=== PATIENT | male | born 1965 | race Caucasian/White ===

== ENCOUNTER → 2021-01-22 11:35 | Outpatient (CLI) | payer BC, SELFPAY ==
[2021-01-22 12:56] LABS: COVID19 -Nasal RAPID Negative (Negative)
== END ==
PROVIDERS: PCP Nurse Practitioner Family; Visit Provider Nurse Practitioner
DX: Z20.822 Contact with and (suspected) exposure to COVID-19 (principal)
CPT/HCPCS: 87635

== ENCOUNTER 2021-01-24 09:20 | Day surgery (SDC) | payer BC, SELFPAY ==
[2021-01-24] VITALS (11 sets, daily range): BP systolic 103–137; BP diastolic 39–93; PULSE 63–82; RESP 12–28; TEMP 36.1–36.2; O2SAT 86–97; BMI 43.1
--- NOTE | 2021-01-24 09:56 | PM.PREOP ---
Pre-operative Note COVID-19 COVID-19 status: Negative Result date/Date tested (Pos, Neg/Pending): 01/22/21 Interval Note History & Physical reviewed/Exam performed by Physician: Yes Changes to H&P: No
[2021-01-24] MEDS: MIDAZOLAM 2 MG/2 ML VIAL IV (10:19)
--- NOTE | 2021-01-24 10:23 | SUR.PREOP ---
To bedside with Dr Gong for nerve block
[2021-01-24] MEDS: LACTATED RINGERS 1,000 ML 42 ML IV ×2 (10:28→13:02)
[2021-01-24] MEDS: CEFAZOLIN VIAL 3 GM in SODIUM CHLORIDE 0.9% 100 ML 200 ML IV (10:30)
--- NOTE | 2021-01-24 10:31 | SUR.PREOP ---
Assist with Dr Gong for nerve block starting at 1020 am
[2021-01-24] MEDS: BUPIVACAINE 0.5% W/ EPI (PF) 30 ML VIAL INJ (11:05)
[2021-01-24] MEDS: SODIUM CHLORIDE IRRIG SOLUTION 3,000 ML, EPINEPHrine 1 MG IRR ×7 (11:05→12:28)
--- NOTE | 2021-01-24 11:16 | SUR.OPER ---
Lateral on padded OR bed with jimenez bag positioner, head on pillow, gel axillary roll in place, bottom leg bent with gel pad under knee to foot, upper leg straight and supported with pillows. Operative arm secured in shoulder positioning suspension device. non-operative arm secured on padded arm board. Safety belt at hip, tape over blanket securing lower legs.
--- NOTE | 2021-01-24 13:07 | P.OP_ITS ---
Operative Date/Time/Diagnoses Date of procedure: 01/24/21 Time of procedure: 13:07 Pre-op diagnosis: 1. Right shoulder massive rotator cuff tear including subscapularis, supraspinatus and infraspinatus 2. Morbid obesity Post-op diagnosis: same Procedure & Clinicians Procedure: Right shoulder arthroscopic rotator cuff repair of 3 tendon tear Same procedure as scheduled: Yes Indications: The patient is a 55-year-old gentleman who injured his right shoulder sustaining the above-noted massive rotator cuff tear. He has agreed to rotator cuff repair after discussion risks benefits alternatives. Risks discussed included but were not limited to: Failure to improve either pain or function, infection, nerve damage, deep venous thrombosis, pulmonary embolism, stroke, myocardial infarction, permanent paralysis, aspiration pneumonia and . Surgeon: Ulysses Escamilla Agriculture Engineer: Kilo Morris Anesthesia Type: General, Peripheral nerve block and Local Operative Notes Findings: 1. Intact glenohumeral cartilage 2. Mild degenerative fraying of the glenoid labrum 3. Intact glenohumeral ligaments with the exception of the superior glenohumeral ligament which was involved in the cuff tear 4. Tearing of the upper 3rd of subscapularis. 5. Rupture of the biceps tendon 6. Rupture and moderate retraction of the supraspinatus tendon 7. Rupture and moderate retraction of the infraspinatus tendon 8. Axillary pouch normal 9. Rotator cuff from the bursal side notable for the massive cuff tear described above. 10. Type 2 acromion with impingement lesion. There was no subacromial dec ompression performed due to the massive size of the tear and potential eventual anterior superior escape. 11. Acromioclavicular joint not visualized 12. Exam under anesthesia notable for normal range of motion and no evidence of pathologic laxity. Closure Type: primary Specimen(s): none sent Prosthetic devices, grafts, tissues, transplants, or devices: One 4.75 mm knotless Healix Advance BR anchor, 2 5.5 mm Healix Advance BR triple threaded anchors Applied: implant(s) Estimated Blood Loss (mL): 50 Blood products transfused: none Procedure in detail: The patient was seen in the preoperative area where he identified his right shoulder as the operative site. This was signed with my initials. He underwent induction of an interscalene block and received preoperative antibiotics. He was taken to the operating room and placed on the operating room table in the supine position where he underwent induction of general anesthesia. Shoulder was examined under anesthesia with the findings given above. He was then repositioned the left lateral decubitus position with an axial roll, a beanbag and padding for all pressure points. He was stabilized in this position with adhesive tape. The right arm was prepared for the fingertips to the base of the neck and draped through sterile drapes. His arm was placed in 10 lb of balanced skin suspension which was eventually increased to 15 lb due to the patient's arm size. The subcutaneous landmarks were outlined on the skin with a marking pen, the portal sites were selected. The posterior portal was created for the arthroscope and diagnostic arthroscopy ensued with the results given above. An a lateral portal was created in the midline of the rotator cuff tear in used to check for mobility of the tear which appeared to be adequate to allow repair. In an anterosuperior lateral portal was created in the rotator interval the for initial preparation of the upper lesser tuberosity for repair of the subscapularis. A SutureTape was placed and a 2nd anterior portal created low and medial to direct the anchor into the correct spot. The patient's obesity and the his large muscular arm combined to make this extremely difficult. Two anchors were broken and a small iatrogenic fracture of the upper lesser tuberosity was created in attempting to do this repair. I then elected to bring the suture tapes laterally and to repair the upper subscapularis to an anchor that was placed in the bicipital groove through the subacromial space. As the biceps had ruptured the space was available. The arthroscope was withdrawn from the glenohumeral joint and placed in the subacromial space and a knotless anchor was placed to repair the upper subscapularis. This had satisfactory purchase. We then turned our attention to the supraspinatus and infraspinatus tears. The tear was quite mobile and posterior to anterior direction so 2 anchors were placed in the prepared greater tuberosity and the 3 sutures on each anchor were placed to simple sutures to advance the cuff anteriorly and from medial-lateral. In addition the traction suture on the knotless anchor in the bicipital groove was used as well to help repair the supraspinatus. All 7 of the sutures were tied with a satisfactory repair. The arthroscopic equipment was then removed. The wounds were closed with 4-0 Monocryl and Steri-Strips. Additional local anesthetic was injected in the subacromial space and subcutaneous tissues for postoperative pain control. Dressings of sterile 4x4s, an ABD and adhesive dressing were applied followed by a sling. The patient was then transported to the recovery room in good condition having tolerated the procedure well. Surgery was very difficult based on the size of the rotator cuff tear, the involvement of 3 tendons including the subscapularis requiring additional portals and anchors. The patient's obesity and his muscular arm made it very difficult to do the subscapularis repair. Total time in this operation exceeded 1 hour and 45 minutes, while a standard rotator cuff repair can be accomplished in approximately 1 hour. As a result a difficult procedure modifier will be added to the coding for this procedure. Complications: none Post-operative Condition: stable Disposition: PACU Plan for aftercare: Patient will be maintained on a passive range of motion protocol for 8 weeks. He will also be maintained on subscapularis repair per protocol range of motion restrictions. He will likely be discharged today once he recovers from anesthesia.
[2021-01-24] MEDS: HYDROCODONE/ACET 10/325 TABLET 1 TAB PO (14:02)
[2021-01-24] MEDS: hydrOXYzine pamoate 25 MG CAPSULE PO (14:02)
== END 2021-01-24 14:29 | disposition home or self-care (01) ==
PROVIDERS: PCP Nurse Practitioner Family; Referring Provider Nurse Practitioner Family; Visit Provider Orthopaedic Surgery
PROC: (CPT 29827; principal; 2021-01-24 10:45)
DX: M75.121 Complete rotator cuff tear or rupture of right shoulder, not specified as traumatic (principal); M75.41 Impingement syndrome of right shoulder; W19.XXXA Unspecified fall, initial encounter; Z91.81 History of falling; E66.01 Morbid (severe) obesity due to excess calories; Z68.41 Body mass index [BMI] 40.0-44.9, adult
CPT/HCPCS: 29827; 64450; C1776; J0171; J0690; J1100; J1170; J1885; J2250; J2405; J2704; J3010